=== PATIENT | female | born 1970 | race Caucasian/White ===

== ENCOUNTER 2020-05-31 23:57 | Emergency (ER) | payer BC ==
[~2020-05-31] VITALS: Ht 162.6 cm; Wt 90.7 kg
[2020-06-01] MEDS ORDERED: ADENOSINE 6 MG/2 ML INJ IV ONE ×3 (00:15→00:32)
[2020-06-01 00:43] VITALS: BP 103/73
[2020-06-01 00:48] LABS: Basophils # (auto) 0.1 10 ^3/uL (0-0.2); Basophils % (auto) 1.1 % (0.0-2.0); Eosinophils # (auto) 0.3 10 ^3/uL (0-0.8); Eosinophils % (auto) 3.1 % (0.0-7.0); Hematocrit 40.5 % (36.0-46.0); Hemoglobin 13.3 g/dL (12.2-16.2); Lymphocytes % (auto) 27.4 % (10.0-50.0); Mean Corpuscular Hemoglobin 29.1 pg (28.0-32.0); Mean Corpuscular Hgb Conc. 32.8 g/dL (32.0-36.0); Mean Corpuscular Volume 88.8 fL (80.0-100.0); Monocytes # (auto) 0.9 10 ^3/uL (0-1.3); Monocytes % (auto) 8.4 % (0.0-12.0); Neutrophils # (auto) 6.7 10 ^3/uL (1.6-8.6); Platelet Count (auto) 297 10^3/uL (140-450); Red Blood Cells 4.56 10^6/uL (4.0-5.20); White Blood Cell 11.1 10^3/uL (4.4-10.8)
[2020-06-01 01:06] LABS: INR 0.91 (0.9-1.15); Partial Thromboplastin Time 25.9 sec (23.0-31.2)
[2020-06-01 01:16] LABS: Alanine Aminotransferase 41 U/L (13-56); Albumin 3.2 g/dL (3.4-5.0); Anion Gap 15 (5-15); Aspartate Aminotransferase 37 U/L (15-37); BUN/Creatinine Ratio 13.2; Blood Urea Nitrogen 12 mg/dL (7-18); Calcium 8.8 mg/dL (8.5-10.1); Carbon Dioxide 15 mmol/L (21-32); Chloride 106 mmol/L (98-107); GFR African American 85 mL/min; GFR Non-African American 70 mL/min; Glucose 96 mg/dL (74-106); Magnesium 2.3 mg/dL (1.6-2.6); Potassium 3.5 mmol/L (3.5-5.1); Sodium 136 mmol/L (136-145)
[2020-06-01 01:24] LABS: Alkaline Phosphatase 91 U/L (45-117); Bilirubin, Total 0.3 mg/dL (0.2-1.0); Total Protein 6.7 g/dL (6.4-8.2)
== END 2020-06-01 02:04 | disposition home or self-care (01) ==
LOC: ER 06-01 00:04
DX: I47.1 Supraventricular tachycardia (principal); R07.89 Other chest pain; R11.2 Nausea with vomiting, unspecified; F41.9 Anxiety disorder, unspecified; K21.9 Gastro-esophageal reflux disease without esophagitis
CPT/HCPCS: 36415; 80053; 83735; 83880; 84443; 84484; 85025; 85379; 85610; 85730; 96374; 99284; J0153

== ENCOUNTER 2020-12-27 16:51 | Emergency (ER) | payer BC ==
[~2020-12-27] VITALS: Ht 162.6 cm; Wt 90.7 kg
[2020-12-27] MEDS ORDERED: ADENOSINE 6 MG/2 ML INJ IV ONE (17:15)
[2020-12-27] MEDS ORDERED: SODIUM CHLORIDE 0.9% 1,000 ML IV ONE ×2 (17:15)
[2020-12-27] MEDS ORDERED: LORazepam 2MG/ML-1ML VIAL IV ONE (17:15)
[2020-12-27] MEDS ORDERED: ONDANSETRON HCL 4 MG/2 ML VIAL ONE (17:26)
[2020-12-27] MEDS ORDERED: MORPHINE SULFATE 4 MG/ML SYR/VIAL ONE (17:26)
[2020-12-27] MEDS ORDERED: ASPirin 81 mg TAB PO ONE (17:30)
[2020-12-27] MEDS ORDERED: ONDANSETRON HCL 4 MG/2 ML VIAL IV ONE (17:45)
[2020-12-27] MEDS ORDERED: MORPHINE SULFATE 4 MG/ML SYR/VIAL IV ONE (17:45)
[2020-12-27 18:15] VITALS: BP 118/73
[2020-12-27 18:19] LABS: Basophils # (auto) 0.1 10 ^3/uL (0-0.2); Basophils % (auto) 1.3 % (0.0-2.0); Eosinophils # (auto) 0.3 10 ^3/uL (0-0.8); Eosinophils % (auto) 3.4 % (0.0-7.0); Hematocrit 38.8 % (36.0-46.0); Hemoglobin 12.8 g/dL (12.2-16.2); Mean Corpuscular Hemoglobin 28.9 pg (28.0-32.0); Mean Corpuscular Volume 87.7 fL (80.0-100.0); Monocytes # (auto) 0.6 10 ^3/uL (0-1.3); Monocytes % (auto) 7.2 % (0.0-12.0); Neutrophils # (auto) 4.9 10 ^3/uL (1.6-8.6); Neutrophils % (auto) 63.1 % (37.0-80.0); Nucleated Red Blood Cells % 0.1 %; Red Blood Cells 4.42 10^6/uL (4.0-5.20); Red Cell Distribution Width 15.4 % (11.8-14.3); White Blood Cell 7.8 10^3/uL (4.4-10.8)
[2020-12-27 18:26] LABS: Calcium 8.6 mg/dL (8.5-10.1); Potassium 4.5 mmol/L (3.5-5.1)
[2020-12-27 18:33] LABS: Bilirubin, Total 0.5 mg/dL (0.2-1.0); Total Protein 6.4 g/dL (6.4-8.2)
== END 2020-12-27 20:12 | disposition home or self-care (01) ==
LOC: ER 16:51
DX: I47.1 Supraventricular tachycardia (principal); K21.9 Gastro-esophageal reflux disease without esophagitis; I48.91 Unspecified atrial fibrillation; Z86.2 Personal history of diseases of the blood and blood-forming organs and certain disorders involving the immune mechanism
CPT/HCPCS: 36415; 71045; 80053; 84443; 84484; 85025; 93005; 96361; 96374; 99285; J0153; J2270; J2405; J7030

== ENCOUNTER 2021-04-19 02:01 | Emergency (ER) | payer BC ==
[~2021-04-19] VITALS: Ht 162.6 cm; Wt 89.8 kg
[2021-04-19] MEDS ORDERED: ADENOSINE 6 MG/2 ML INJ IV ONE ×2 (02:22→02:30)
[2021-04-19] MEDS ORDERED: SODIUM CHLORIDE 0.9% 1,000 ML IV ONE (02:30)
[2021-04-19 04:21] LABS: Hemoglobin 11.6 g/dL (12.2-16.2); Lymphocytes # (auto) 1.4 10 ^3/uL (0.4-5.4); Mean Corpuscular Hemoglobin 26.7 pg (28.0-32.0); Nucleated Red Blood Cells % 0.1 %; Red Blood Cells 4.34 10^6/uL (4.0-5.20)
[2021-04-19 04:23] LABS: Basophils # (auto) 0 10 ^3/uL (0-0.2); Basophils % (auto) 1.1 % (0.0-2.0); Eosinophils # (auto) 0.3 10 ^3/uL (0-0.8); Hematocrit 37.3 % (36.0-46.0); Lymphocytes % (auto) 32.2 % (10.0-50.0); Mean Corpuscular Hgb Conc. 31.1 g/dL (32.0-36.0); Mean Corpuscular Volume 85.9 fL (80.0-100.0); Monocytes # (auto) 0.3 10 ^3/uL (0-1.3); Monocytes % (auto) 8.1 % (0.0-12.0); Neutrophils # (auto) 2.3 10 ^3/uL (1.6-8.6); Neutrophils % (auto) 52.6 % (37.0-80.0); Red Cell Distribution Width 15.9 % (11.8-14.3); White Blood Cell 4.3 10^3/uL (4.4-10.8)
[2021-04-19 04:40] LABS: Alanine Aminotransferase 54 U/L (13-56); Albumin 2.6 g/dL (3.4-5.0); Anion Gap 10 (5-15); Aspartate Aminotransferase 59 U/L (15-37); BUN/Creatinine Ratio 12.2; Blood Urea Nitrogen 9 mg/dL (7-18); Calcium 8.1 mg/dL (8.5-10.1); Carbon Dioxide 19 mmol/L (21-32); Chloride 116 mmol/L (98-107); GFR African American 107 mL/min; GFR Non-African American 89 mL/min; Glucose 90 mg/dL (74-106); Magnesium 2.2 mg/dL (1.6-2.6); Potassium 3.9 mmol/L (3.5-5.1); Sodium 145 mmol/L (136-145)
[2021-04-19 04:45] LABS: Alkaline Phosphatase 85 U/L (45-117); Bilirubin, Total 0.2 mg/dL (0.2-1.0)
[2021-04-19 06:01] VITALS: BP 97/57
== END 2021-04-19 06:27 | disposition home or self-care (01) ==
LOC: ER 02:02
DX: I47.1 Supraventricular tachycardia (principal); F41.9 Anxiety disorder, unspecified; K21.9 Gastro-esophageal reflux disease without esophagitis
CPT/HCPCS: 36415; 80053; 83735; 84484; 85025; 93005; 96361; 96374; 99284; J0153